=== PATIENT | male | born 1990 | race Caucasian/White ===

== ENCOUNTER 2022-07-05 16:32 | Emergency (ER) | payer BC ==
[2022-07-05] MEDS ORDERED: Lactated Ringers 1,000 ML IV STA (17:54)
[2022-07-05] MEDS ORDERED: Ketorolac 30 MG/ML SDV IVPUSH ONE (17:54)
[2022-07-05] MEDS ORDERED: traMADol 50 MG Tab PO ONE (20:39)
== END 2022-07-05 20:53 | disposition home or self-care (01) ==
LOC: MW.ED 16:32
DX: N13.2 Hydronephrosis with renal and ureteral calculous obstruction (principal); R30.0 Dysuria; R39.15 Urgency of urination; Z86.16 Personal history of COVID-19
CPT/HCPCS: 36415; 74176; 80048; 81001; 85025; 96361; 96374; 99284; A9270; J1885; J7120